=== PATIENT | female | born 1970 ===

== ENCOUNTER 2018-01-19 02:26 | Outpatient (CLI) | payer MEDICARE, MEDICAID | END 2018-01-19 23:59 | disposition home or self-care (01) | LOC: DIABETIC 02:26 | PROVIDERS: ATTEND Surgery | DX: E66.01 Morbid (severe) obesity due to excess calories (principal); Z48.815 Encounter for surgical aftercare following surgery on the digestive system | CPT/HCPCS: 97802 ==